=== PATIENT | male | born 1955 | race African-American/Black ===

== ENCOUNTER 2021-01-15 22:01 | Emergency (ER) | payer OTHER ==
[~2021-01-15] VITALS: Ht 182.9 cm; Wt 145.2 kg
[2021-01-15] MEDS ORDERED: ALLOPURINOL 10100 M1 PO (22:12)
[2021-01-15] MEDS ORDERED: COZAAR 25 MG TA25 M1 PO (22:12)
[2021-01-15] MEDS ORDERED: NORVASC 2.5 MG2.5 M1 PO (22:12)
[2021-01-15] MEDS ORDERED: SILDENAFIL20 MG PO (22:13)
[2021-01-15] MEDS ORDERED: LIPITOR40 MG PO (22:13)
[2021-01-15 23:09] LABS: ABSOLUTE NEUTROPHILS 6.8 thou/uL (1.4-8.2); BASOPHILS 0.6 % (0.0-2.0); EOSINOPHILS 3.5 % (0.0-3.0); HEMOGLOBIN 16.1 gm/dL (14.0-18.0); LYMPHOCYTES 26.2 % (24.0-44.0); MCH 32.4 pg (26.0-34.0); MCHC 34.4 g/dL (28.0-37.0); MCV 94.1 fL (80.0-100.0); MONOCYTES 8.2 % (1.0-8.0); PLATELET COUNT 276 thou/uL (150-400); POLYS 61.5 % (36.0-66.0); RBC 4.99 mil/uL (4.50-6.00); RDW 13.7 % (10.5-14.5)
[2021-01-15 23:13] LABS: URINE BILIRUBIN NEGATIVE (Negative); URINE BLOOD NEGATIVE (Negative); URINE CLARITY CLEAR; URINE COLOR YELLOW; URINE GLUCOSE-RANDOM* NEGATIVE (Negative); URINE KETONES NEGATIVE (Negative); URINE LEUKOCYTES-REFLEX NEGATIVE (Negative); URINE NITRITE-REFLEX NEGATIVE (Negative); URINE PROTEIN (DIPSTICK) NEGATIVE (Negative); URINE UROBILINOGEN 0.2 E.U./dl (0.2-1.0)
[2021-01-15 23:23] LABS: AMP/METHAMP Negative (Negative); BARBITURATES Negative (Negative); BENZODIAZEPINES POSITIVE (Negative); COCAINE POSITIVE (Negative); METHADONE Negative (Negative); OPIATES POSITIVE (Negative); PCP POSITIVE (Negative)
[2021-01-15 23:25] LABS: ALBUMIN 3.3 g/dL (3.4-5.0); CALCIUM 7.3 mg/dL (8.5-10.1); CREATININE 0.8 mg/dL (0.7-1.3); TOTAL BILIRUBIN 0.4 mg/dL (0.2-1.0); TOTAL PROTEIN 5.9 g/dL (6.4-8.2)
[2021-01-15 23:27] LABS: POTASSIUM 2.9 mmol/L (3.5-5.1)
[2021-01-16 00:28] VITALS: BP 164/90
--- NOTE | 2021-01-16 16:50 | EKG ---
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
== END 2021-01-16 00:33 | disposition home or self-care (01) ==
LOC: ER 22:01
PROVIDERS: Emergency Medicine
DX: E87.6 Hypokalemia (principal); R41.0 Disorientation, unspecified; E11.9 Type 2 diabetes mellitus without complications; Z88.8 Allergy status to other drugs, medicaments and biological substances; V48.0XXA Car driver injured in noncollision transport accident in nontraffic accident, initial encounter; Y93.I9 Activity, other involving external motion; Y92.488 Other paved roadways as the place of occurrence of the external cause; Y99.8 Other external cause status